=== PATIENT | female | born 1990 | race Caucasian/White ===

== ENCOUNTER 2018-10-01 11:58 | Emergency (ER) | payer MEDICAID ==
--- NOTE | 2018-10-01 15:14 | EDM.PDOC ---
ED HPI GENERAL MEDICAL PROBLEM - General Chief Complaint: General Stated Complaint: DIZZINESS Time Seen by Provider: 10/01/18 14:45 Source of Information: Reports: Patient History Limitations: Reports: No Limitations - History of Present Illness INITIAL COMMENTS - FREE TEXT/NARRATIVE: This lady who is at 26 weeks gestation presented with some dizziness. It started this morning initially seemed to be like a near syncope type of thing but then later she would just have episodes of Headache Pain Score (Numeric/FACES): 5 - Related Data Allergies Allergy/AdvReac Type Severity Reaction Status Date / Time latex Allergy Rash Verified 10/01/18 12:21 Home Meds: Home Meds Pnv with Ca,No.74/Iron/Fa [ Low Iron Tablet] 1 tab PO DAILY 07/27/18 [ History] Past Medical History HEENT History: Reports: Impaired Vision THAI MASSEUR History: Reports: Psychiatric History: Reports: Anxiety, Depression - Infectious Disease History Infectious Disease History: Reports: Chicken Pox - Past Surgical History HEENT Surgical History: Reports: Other (See Below) Other HEENT Surgeries/Procedures: 9 ear surgeries r ear Social & Family History - Tobacco Use Smoking Status *Q: Former Smoker Used Tobacco, but Quit: Yes Month/Year Tobacco Last Used: 2011 Second Hand Smoke Exposure: No - Caffeine Use Caffeine Use: Reports: Soda - Recreational Drug Use Recreational Drug Use: No ED ROS GENERAL - Review of Systems Review Of Systems: See Below Constitutional: Reports: No Symptoms HEENT: Reports: No Symptoms Respiratory: Reports: No Symptoms Cardiovascular: Reports: No Symptoms Endocrine: Reports: No Symptoms GI/Abdominal: Reports: No Symptoms : Reports: No Symptoms Musculoskeletal: Reports: No Symptoms Skin: Reports: No Symptoms Neurological: Reports: Dizziness ED EXAM, GENERAL - Physical Exam Exam: See Below Exam Limited By: No Limitations General Appearance: Alert, WD/WN, No Apparent Distress Eye Exam: Bilateral Eye: Normal Inspection (No nystagmus) Ears: Normal TMs Throat/Mouth: Normal Oropharynx Head: Atraumatic Neck: Normal Inspection Respiratory/Chest: Lungs Clear Cardiovascular: Regular Rate, Rhythm, No Murmur GI/Abdominal: Other (Abdomen exam was not done was started on OB) Neurological: Alert, Oriented, CN II-XII Intact, No Motor/Sensory Deficits Psychiatric: Normal Affect Skin Exam: Warm, Dry Course - Vital Signs Last Recorded V/S: Last Vital Signs Temp 36.6 C 10/01/18 12:24 Pulse 83 10/01/18 12:24 Resp 16 10/01/18 12:24 BP 120/73 10/01/18 12:24 Pulse Ox 99 10/01/18 12:24 - Orders/Labs/Meds Orders: Active Orders 24 hr Category Date Time Status Orthostatic Vital Signs [RC] ASDIRECTED Care 10/01/18 13:26 Active - Re-Assessments/Exams Free Text/Narrative Re-Assessment/Exam: 10/01/18 15:13 Patient was examined she looks like she is extra fairly well she's asymptomatic right now and orthostatics are negative. Departure - Departure Time of Disposition: 15:13 Disposition: Home, Self-Care 01 Condition: Good Clinical Impression: Vertigo, Second trimester - Discharge Information Referrals: Gucci Lin MD [Primary Care Provider] - Additional Instructions: Go home and go to bed if able. This light activity states drink plenty of liquids. If you have more problems with vertigo see your Dr. tomorrow at this point you shouldn't need any kind of medications any of the vertigo medications will cause sedation which you probably do not want. - My Orders Last 24 Hours: My Active Orders 10/01/18 13:26 Orthostatic Vital Signs [RC] ASDIRECTED - Assessment/Plan Last 24 Hours: My Active Orders 10/01/18 13:26 Orthostatic Vital Signs [RC] ASDIRECTED
== END 2018-10-01 15:17 | disposition home or self-care (01) ==
LOC: JP.ED 11:58
DX: O99.89 Other specified diseases and conditions complicating pregnancy, childbirth and the puerperium (principal); R42 Dizziness and giddiness; Z87.891 Personal history of nicotine dependence; Z91.040 Latex allergy status; Z3A.26 26 weeks gestation of pregnancy
CPT/HCPCS: 99284

== ENCOUNTER 2024-03-21 22:28 | Emergency (ER) | payer OTHER ==
[2024-03-21 23:26] LABS: BASOPHILS PERCENT AUTO 0.3 % (0.1-1.3); EOSINOPHILS ABSOLUTE AUTO 0.24 K/uL (0.00-0.40); EOSINOPHILS PERCENT AUTO 3.2 % (0.0-5.4); HEMATOCRIT 40.4 % (34.3-46.0); HEMOGLOBIN 13.6 g/dL (11.2-15.5); IMMATURE GRAN PERCENT AUTO 0.3 % (0.0-0.7); LYMPHOCYTES ABSOLUTE AUTO 2.83 K/uL (0.8-3.3); LYMPHOCYTES PERCENT AUTO 37.2 % (11.4-47.7); MEAN CORPUSCULAR HEMOGLOBIN 30.3 pg (31.6-35.5); MEAN CORPUSCULAR HGB CONC 33.7 g/dL (31.6-35.5); MONOCYTES ABSOLUTE AUTO 0.79 K/uL (0.20-0.90); MONOCYTES PERCENT AUTO 10.4 % (3.3-12.6); NEUTROPHILS ABSOLUTE AUTO 3.71 K/uL (1.0-7.6); NEUTROPHILS PERCENT AUTO 48.6 % (40.0-78.1); PLATELET COUNT,PLT 246 K/uL (130-375); RED BLOOD CELL COUNT 4.49 M/uL (3.77-5.24); WHITE BLOOD CELL COUNT,WBC 7.6 K/uL (3.2-11.0)
[2024-03-21 23:27] LABS: BASOPHILS ABSOLUTE AUTO 0.02 K/uL (0.00-0.10); IMMATURE GRAN ABSOLUTE AUTO 0.02 K/uL (0.00-0.23)
[2024-03-21] MEDS: Sodium Chloride 0.9% 1,000 ML IV SCH (23:27)
[2024-03-21] MEDS: Sodium Chloride 0.9% 80 ML IV STA (23:52)
[2024-03-21] MEDS: Iopamidol 612 MG/ML 100 ML Bottle IV STA (23:52)
[2024-03-21 23:57] LABS: ANION GAP 10.7 mmol/L (5.0-14.0); BLOOD UREA NITROGEN,BUN 5 mg/dL (7-18); C-REACTIVE PROTEIN < 0.50 mg/dL (<0.50); CALCIUM 8.8 mg/dL (8.5-10.1); CARBON DIOXIDE,CO2 26 mmol/L (21-32); CHLORIDE,CL 105 mmol/L (100-108); CREATININE 0.8 mg/dL (0.6-1.0); EST CRCL DRUG DOSING (CG) 87.99 mL/min; ESTIMATED GFR 101 mL/min (>60); GLUCOSE RANDOM 100 mg/dL (74-106); POTASSIUM,K 3.8 mmol/L (3.6-5.2); SODIUM,NA 142 mmol/L (140-148)
[2024-03-22 00:25] LABS: APPEARANCE,URINE CLEAR (CLEAR); BILIRUBIN,URINE NEGATIVE (NEGATIVE); GLUCOSE,URINE NEGATIVE (NEGATIVE); KETONES,URINE NEGATIVE (NEGATIVE); LEUKOCYTE ESTERASE,URINE NEGATIVE (NEGATIVE); NITRITE,URINE NEGATIVE (NEGATIVE); OCCULT BLOOD,URINE NEGATIVE (NEGATIVE); PROTEIN,URINE NEGATIVE (NEGATIVE); UROBILINOGEN,URINE 0.2 EU/dL (0.2-1.0)
[2024-03-22 00:30] LABS: AMORPHOUS SEDIMENT,URINE NOT SEEN; BACTERIA,URINE RARE; COLOR,URINE OTHER (YELLOW); EPITHELIAL CELLS,URINE RARE; MUCUS,URINE RARE; RBC,URINE NOT SEEN (0-5); WBC,URINE 0-5 (0-5)
== END 2024-03-22 04:24 | disposition home or self-care (01) ==
LOC: JP.ED 22:28
DX: N94.89 Other specified conditions associated with female genital organs and menstrual cycle (principal); Z91.040 Latex allergy status; Z87.891 Personal history of nicotine dependence
CPT/HCPCS: 36415; 74177; 76830; 76856; 80048; 81001; 84703; 85025; 86140; 93976; 96360; 99284; J3490; J7030; Q9967

== ENCOUNTER 2024-07-04 20:01 | Emergency (ER) | payer OTHER ==
[2024-07-04] MEDS: Lidocaine 1% 5 ML VIAL INJECT ONE (21:01)
[2024-07-04] MEDS: Bacitracin Oint 1 GM U/D Packet TOP ONE (21:30)
== END 2024-07-04 21:32 | disposition home or self-care (01) ==
LOC: JP.ED 20:01
DX: S61.211A Laceration without foreign body of left index finger without damage to nail, initial encounter (principal); W26.0XXA Contact with knife, initial encounter; Z91.040 Latex allergy status; Z79.899 Other long term (current) drug therapy
CPT/HCPCS: 12001; 99282

== ENCOUNTER 2024-11-27 18:58 | Emergency (ER) | payer OTHER ==
[2024-11-27 19:39] LABS: BASOPHILS PERCENT AUTO 0.2 % (0.1-1.3); EOSINOPHILS ABSOLUTE AUTO 0.07 K/uL (0.00-0.40); EOSINOPHILS PERCENT AUTO 0.7 % (0.0-5.4); HEMOGLOBIN 13.5 g/dL (11.2-15.5); IMMATURE GRAN ABSOLUTE AUTO 0.03 K/uL (0.00-0.23); IMMATURE GRAN PERCENT AUTO 0.3 % (0.0-0.7); LYMPHOCYTES ABSOLUTE AUTO 1.47 K/uL (0.8-3.3); LYMPHOCYTES PERCENT AUTO 15.3 % (11.4-47.7); MEAN CORPUSCULAR HGB CONC 33.8 g/dL (31.6-35.5); MEAN CORPUSCULAR VOLUME 91.7 fL (81.4-99.0); MONOCYTES ABSOLUTE AUTO 0.88 K/uL (0.20-0.90); MONOCYTES PERCENT AUTO 9.1 % (3.3-12.6); NEUTROPHILS ABSOLUTE AUTO 7.16 K/uL (1.0-7.6); NEUTROPHILS PERCENT AUTO 74.4 % (40.0-78.1); PLATELET COUNT,PLT 245 K/uL (130-375); RED BLOOD CELL COUNT 4.36 M/uL (3.77-5.24); WHITE BLOOD CELL COUNT,WBC 9.6 K/uL (3.2-11.0)
[2024-11-27 19:40] LABS: BASOPHILS ABSOLUTE AUTO 0.02 K/uL (0.00-0.10)
[2024-11-27 20:09] LABS: ALANINE AMINOTRANSFERASE,ALT 51 U/L (12-78); ALBUMIN 3.6 g/dL (3.4-5.0); ALKALINE PHOSPHATASE 57 U/L (46-116); ANION GAP 11.7 mmol/L (5.0-14.0); ASPARTATE AMNIOTRANSFERASE,AST 37 U/L (15-37); BILIRUBIN TOTAL 0.4 mg/dL (0.2-1.0); BLOOD UREA NITROGEN,BUN 9 mg/dL (7-18); C-REACTIVE PROTEIN 2.14 mg/dL (<0.50); CALCIUM 9.5 mg/dL (8.5-10.1); CARBON DIOXIDE,CO2 26 mmol/L (21-32); CHLORIDE,CL 105 mmol/L (100-108); CREATININE 0.9 mg/dL (0.6-1.0); EST CRCL DRUG DOSING (CG) 77.49 mL/min; ESTIMATED GFR 87 mL/min (>60); GLUCOSE RANDOM 98 mg/dL (74-106); POTASSIUM,K 3.7 mmol/L (3.6-5.2); PROTEIN TOTAL,TP 7.1 g/dL (6.4-8.2); SODIUM,NA 143 mmol/L (140-148)
[2024-11-27 20:14] LABS: LACTIC ACID 1.1 mmol/L (0.4-2.0)
[2024-11-27] MEDS: Sodium Chloride 0.9% 100 ML IV ONE (20:35)
[2024-11-27] MEDS: Iopamidol 612 MG/ML 100 ML Bottle IV ONE (20:35)
[2024-11-27] MEDS: Sodium Chloride 0.9% 10 ML Syringe FLUSH ONE (20:35)
== END 2024-11-27 21:03 | disposition home or self-care (01) ==
LOC: JP.ED 18:58
DX: J02.0 Streptococcal pharyngitis (principal); Z91.040 Latex allergy status; Z79.899 Other long term (current) drug therapy
CPT/HCPCS: 36415; 74177; 80053; 83605; 83690; 84703; 85025; 86140; 87428; 87651; 99283; 99284; Q9967

== ENCOUNTER 2025-03-03 15:57 | Emergency (ER) | payer OTHER ==
[2025-03-03 17:03] LABS: APPEARANCE,URINE CLOUDY (CLEAR); BILIRUBIN,URINE NEGATIVE (NEGATIVE); COLOR,URINE YELLOW (YELLOW); GLUCOSE,URINE NEGATIVE (NEGATIVE); KETONES,URINE TRACE mg/dL (NEGATIVE); LEUKOCYTE ESTERASE,URINE SMALL (NEGATIVE); NITRITE,URINE NEGATIVE (NEGATIVE); OCCULT BLOOD,URINE NEGATIVE (NEGATIVE); PH,URINE 5.5 (5.0-8.0); PROTEIN,URINE NEGATIVE (NEGATIVE)
== END 2025-03-03 17:23 | disposition home or self-care (01) ==
LOC: JP.ED 15:57
DX: N39.0 Urinary tract infection, site not specified (principal); Z91.040 Latex allergy status; Z79.899 Other long term (current) drug therapy
CPT/HCPCS: 81001; 99283